=== PATIENT | male | born 2000 | race Caucasian/White ===

== ENCOUNTER 2019-04-11 01:14 | Emergency (ER) | payer OTHER ==
[~2019-04-11] VITALS: Ht 180.3 cm; Wt 80.6 kg
[~2019-04-11 01:14] MED LIST: BEN25 PO; CEPH-443 PO; PRED20TA PO
[2019-04-11 01:19] VITALS: BP 115/69; PULSE 96; RESP 18; Ht 180.3 cm; Wt 80.6 kg
[2019-04-11] MEDS ORDERED: CEPHALEXIN 500 MG CAP PO ONE (03:00)
[2019-04-11] MEDS ORDERED: DEXAMETHASONE 10 MG/ML 1 ML INJ IM ONE (03:00)
[2019-04-11] MEDS ORDERED: DIPHENHYDRAMINE 50 MG INJ IM ONE (03:00)
== END 2019-04-11 03:12 | disposition home or self-care (01) ==
LOC: FTE 01:14
DX: S40.862A Insect bite (nonvenomous) of left upper arm, initial encounter (principal); F17.210 Nicotine dependence, cigarettes, uncomplicated; S40.861A Insect bite (nonvenomous) of right upper arm, initial encounter; W57.XXXA Bitten or stung by nonvenomous insect and other nonvenomous arthropods, initial encounter; Y92.9 Unspecified place or not applicable
CPT/HCPCS: 96372; J1100; J1200; Z7502; Z7610